=== PATIENT | female | born 1980 | race American Indian/Alaskan Native ===

== ENCOUNTER 2016-06-02 03:16 | Emergency (ER) | payer MEDICAID, OTHER ==
[2016-06-02 03:17] VITALS: BMI 47.0
[2016-06-02 03:26] VITALS: BP 157/65; PULSE 74; RESP 18; TEMP 98.6; O2SAT 99
--- NOTE | 2016-06-02 03:49 | ED PDOC ---
Upper Extremity Pain/Injury Time Seen by Provider: 06/02/16 03:26 Chief Complaint (Nursing): Upper Extremity Problem/Injury Chief Complaint (Provider): left shoulder pain History Per: Patient History/Exam Limitations: no limitations Onset/Duration Of Symptoms: Unknown Current Symptoms Are (Timing): Still Present Severity: Mild Exacerbating Factor(s): Movement Additional Complaint(s): Patient is a 35 year old female, well known to the ED, presents to the ED complaining of atraumatic left shoulder pain. According to chart review, patient was seen yesterday at the [facility] for the same complaint. Pain is worse with movement. Patient states she is tired and wants to sleep. Denies numbness or tingling. PMD: none Past Medical History Reviewed: Historical Data, Nursing Documentation, Vital Signs Vital Signs: Last Vital Signs Temp 98.6 F 06/02/16 03:22 Pulse 74 06/02/16 03:22 Resp 18 06/02/16 03:22 BP 157/65 H 06/02/16 03:22 Pulse Ox 99 06/02/16 03:22 - Medical History PMH: Anxiety, Asthma, Back Problems, Bipolar Disorder, Depression, HTN, Schizophrenia, Sleep Apnea Denies: Diabetes, Hepatitis, HIV, Chronic Kidney Disease, Seizures, Sexually Transmitted Disease - Surgical History Surgical History: Cholecystectomy, Hernia Repair (Umbilical), (x4) - Family History Family History: States: Unknown Family Hx - Immunization History Hx Tetanus Toxoid Vaccination: No Hx Influenza Vaccination: No Hx Pneumococcal Vaccination: No - Home Medications Home Medications: Ambulatory Orders Medication Instructions Recorded Albuterol HFA [Ventolin HFA 90 2 inh INH PRN PRN 01/28/16 mcg/actuation (8 g)] Amoxicillin [Amoxil 500 mg Cap] 500 mg PO TID #21 cap 04/23/16 Naproxen [Naprosyn] 500 mg PO BID #12 tablet 06/02/16 - Allergies Allergies/Adverse Reactions: Allergies Allergy/AdvReac Type Severity Reaction Status Date / Time nut - unspecified [nut] Allergy ANAPHYLAXIS Verified 05/21/16 01:09 shellfish derived Allergy ANAPHYLAXIS Verified 05/21/16 01:09 tomato Allergy ANAPHYLAXIS Verified 05/21/16 01:09 lactose intolerent Allergy Severe RASH Uncoded 05/21/16 01:09 mushroom Allergy Mild RASH Uncoded 05/21/16 01:09 Review of Systems ROS Statement: Except As Marked, All Systems Reviewed And Found Negative Constitutional: Negative for: Fever Musculoskeletal: Positive for: Shoulder Pain (left) Neurological: Negative for: Numbness Physical Exam - Reviewed Nursing Documentation Reviewed: Yes Vital Signs Reviewed: Yes - Physical Exam Appears: Positive for: Well, Non-toxic, No Acute Distress Head Exam: Positive for: ATRAUMATIC, NORMAL INSPECTION, NORMOCEPHALIC Skin: Positive for: Normal Color, Warm, DRY Eye Exam: Positive for: Normal appearance, EOMI Neck: Positive for: Normal, Painless ROM Extremity: Positive for: Normal ROM (Able to raise arm to the level of her head with increased pain), Tenderness (tend of posterior deltoid). Negative for: Deformity, Swelling Neurologic/Psych: Positive for: Alert, Oriented - ECG O2 Sat by Pulse Oximetry: 99 Medical Decision Making Medical Decision Making: Time: 3:30 Impression: Left shoulder pain Plan: Motrin 600 mg PO XR Left Shoulder Negative XR Left Shoulder Patient advised to follow up with orthopedist. Patient feels better. Discussed results and plan with patient who expresses understanding. Counseling was provided regarding the diagnosis and prognosis. All questions answered and there is agreement with the plan to discharge home with instructions. Patient stable for discharge. Return if symptoms persist or worsen. Scribe Attestation: Documented by Hamzah Arevalo acting as a scribe for Vic Lambert MD. Scribe Attestation: All medical record entries made by the Scribe were at my direction and personally dictated by me. I have reviewed the chart and agree that the record accurately reflects my personal performance of the history, physical exam, medical decision making, and the department course for this patient. I have also personally directed, reviewed, and agree with the discharge instructions and disposition. Disposition - Clinical Impression Clinical Impression: Shoulder pain - Patient ED Disposition Is Patient to be Admitted: No Counseled Patient/Family Regarding: Studies Performed, Diagnosis, Need For Followup - Disposition Referrals: [facility] [place] [Outside] Disposition: Routine/Home Disposition Time: 04:50 Condition: STABLE Prescriptions: Naproxen [Naprosyn] 500 mg PO BID #12 tablet Instructions: Shoulder Pain (ED)
--- NOTE | 2016-06-02 10:35 | RAD ---
PROCEDURE: Radiographs of the Left Shoulder HISTORY: shoulder pain COMPARISON: No prior. FINDINGS: BONES: Normal. No fracture. JOINTS: Normal. Glenohumeral and acromioclavicular joints preserved. No osteoarthritis. SOFT TISSUES: Normal. OTHER FINDINGS: None. IMPRESSION: Normal radiographs of the left shoulder.
== END 2016-06-02 05:10 | disposition home or self-care (01) ==
LOC: H.ER 03:16
DX: M25.512 Pain in left shoulder (principal); F20.9 Schizophrenia, unspecified; F31.9 Bipolar disorder, unspecified; F41.9 Anxiety disorder, unspecified; I10 Essential (primary) hypertension; Z87.09 Personal history of other diseases of the respiratory system

== ENCOUNTER 2016-07-02 03:43 | Emergency (ER) | payer MEDICAID, OTHER ==
[2016-07-02 03:55] VITALS: BMI 49.1
[2016-07-02 03:56] VITALS: BP 135/78; PULSE 70; RESP 16; TEMP 97.8
--- NOTE | 2016-07-02 04:00 | ED PDOC ---
HPI: General Adult Time Seen by Provider: 07/02/16 03:47 Chief Complaint (Nursing): Medical Clearance Chief Complaint (Provider): "I feel fine" History Per: Patient History/Exam Limitations: no limitations Onset/Duration Of Symptoms: Days Have you had recent travel within the past 21 days to any of the following countries: [place], [place], [place] or [place]?: No Additional Complaint(s): Pt sleeping in triage area on my arrival. Past Medical History Reviewed: Historical Data, Nursing Documentation, Vital Signs - Medical History PMH: Anxiety, Asthma, Back Problems, Bipolar Disorder, Depression, HTN, Schizophrenia, Sleep Apnea Denies: Diabetes, Hepatitis, HIV, Chronic Kidney Disease, Seizures, Sexually Transmitted Disease - Surgical History Surgical History: Cholecystectomy, Hernia Repair (Umbilical), (x4) - Family History Family History: States: Unknown Family Hx - Living Arrangements Living Arrangements: Other - Immunization History Hx Tetanus Toxoid Vaccination: No Hx Influenza Vaccination: Yes Hx Pneumococcal Vaccination: Yes - Home Medications Home Medications: Ambulatory Orders Medication Instructions Recorded No Known Home Med 06/25/16 - Allergies Allergies/Adverse Reactions: Allergies Allergy/AdvReac Type Severity Reaction Status Date / Time nut - unspecified [nut] Allergy ANAPHYLAXIS Verified 06/16/16 05:12 shellfish derived Allergy ANAPHYLAXIS Verified 06/16/16 05:12 tomato Allergy ANAPHYLAXIS Verified 06/16/16 05:12 lactose intolerent Allergy Severe RASH Uncoded 06/16/16 05:12 mushroom Allergy Mild RASH Uncoded 06/16/16 05:12 Review of Systems ROS Statement: Except As Marked, All Systems Reviewed And Found Negative Physical Exam - Reviewed Nursing Documentation Reviewed: Yes Vital Signs Reviewed: Yes - Physical Exam Appears: Positive for: Well, Non-toxic, No Acute Distress Head Exam: Positive for: ATRAUMATIC, NORMAL INSPECTION, NORMOCEPHALIC Skin: Positive for: Normal Color, Warm, DRY Eye Exam: Positive for: Normal appearance ENT: Positive for: Normal ENT Inspection Neck: Positive for: Normal, Painless ROM Cardiovascular/Chest: Positive for: Regular Rate, Rhythm Respiratory: Positive for: CNT, Normal Breath Sounds Gastrointestinal/Abdominal: Positive for: Normal Exam, Bowel Sounds, Soft Back: Positive for: Normal Inspection Extremity: Positive for: Normal ROM Neurologic/Psych: Positive for: Alert, Oriented - ECG O2 Sat by Pulse Oximetry: 99 Pulse Ox Interpretation: Normal Medical Decision Making Medical Decision Making: EKG - NSR Disposition - Clinical Impression Clinical Impression: Chest pain - Disposition Referrals: [facility] [Outside] Disposition: Routine/Home Disposition Time: 03:55 Condition: STABLE Instructions: Chest Pain (ED)
[2016-07-02 04:08] VITALS: O2SAT 99
== END 2016-07-02 04:35 | disposition home or self-care (01) ==
LOC: H.ER 03:43
DX: R07.89 Other chest pain (principal)

== ENCOUNTER 2016-08-23 02:14 | Emergency (ER) | payer MEDICAID, OTHER ==
[2016-08-23 02:16] VITALS: BMI 42.0
[2016-08-23 02:31] VITALS: BP 139/89; PULSE 76; RESP 16; TEMP 98; O2SAT 98
--- NOTE | 2016-08-23 02:39 | ED PDOC ---
HPI: Back Time Seen by Provider: 08/23/16 02:20 Chief Complaint (Nursing): Back Pain Chief Complaint (Provider): back pain History Per: Patient History/Exam Limitations: no limitations Onset/Duration Of Symptoms: Hrs Current Symptoms Are (Timing): Still Present Additional History Per: Patient Additional Complaint(s): 36 y/o nondomiciled female presents for eval of right lower back pain. Patient states pain starts in right buttock and radiates down right leg, states she needs a place to rest for a little. 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 Denies fall, numbness/ weakness lower extremities, bowel/bladder incontinence, urinary symptoms. Past Medical History Reviewed: Historical Data, Nursing Documentation, Vital Signs Vital Signs: Last Vital Signs Temp 98.0 F 08/23/16 02:19 Pulse 76 08/23/16 02:19 Resp 16 08/23/16 02:19 BP 139/89 08/23/16 02:19 Pulse Ox 98 08/23/16 02:19 - Medical History PMH: Anxiety, Asthma, Back Problems, Bipolar Disorder, Depression, HTN, Schizophrenia, Sleep Apnea Denies: Diabetes, Hepatitis, HIV, Chronic Kidney Disease, Seizures, Sexually Transmitted Disease - Surgical History Surgical History: Cholecystectomy, Hernia Repair (Umbilical), (x4) - Family History Family History: States: Unknown Family Hx - Immunization History Hx Tetanus Toxoid Vaccination: No Hx Influenza Vaccination: Yes Hx Pneumococcal Vaccination: Yes - Home Medications Home Medications: Ambulatory Orders Medication Instructions Recorded Albuterol HFA [Ventolin HFA 90 0.09 mg IH Q6 PRN 07/26/16 mcg/actuation (8 g)] Naproxen [Naprosyn] 500 mg PO Q12 PRN #20 tablet 08/23/16 - Allergies Allergies/Adverse Reactions: Allergies Allergy/AdvReac Type Severity Reaction Status Date / Time nut - unspecified [nut] Allergy ANAPHYLAXIS Verified 08/19/16 04:57 shellfish derived Allergy ANAPHYLAXIS Verified 08/19/16 04:57 tomato Allergy ANAPHYLAXIS Verified 08/19/16 04:57 lactose intolerent Allergy Severe RASH Uncoded 08/19/16 04:57 mushroom Allergy Mild RASH Uncoded 08/19/16 04:57 Review of Systems ROS Statement: Except As Marked, All Systems Reviewed And Found Negative Musculoskeletal: Positive for: Back Pain, Leg Pain Physical Exam - Reviewed Nursing Documentation Reviewed: Yes Vital Signs Reviewed: Yes - Physical Exam Appears: Positive for: Well, Non-toxic, No Acute Distress (sleeping) Head Exam: Positive for: ATRAUMATIC, NORMAL INSPECTION, NORMOCEPHALIC Skin: Positive for: Normal Color Cardiovascular/Chest: Positive for: Regular Rate, Rhythm Respiratory: Positive for: Normal Breath Sounds Back: Positive for: Normal Inspection Extremity: Positive for: Normal ROM Neurologic/Psych: Positive for: Alert, Oriented - ECG O2 Sat by Pulse Oximetry: 98 Disposition - Clinical Impression Clinical Impression: Substance abuse, Sciatica - Patient ED Disposition Is Patient to be Admitted: No Counseled Patient/Family Regarding: Diagnosis, Need For Followup, Rx Given - Disposition Disposition: Routine/Home Disposition Time: 02:42 Condition: STABLE Prescriptions: Naproxen [Naprosyn] 500 mg PO Q12 PRN #20 tablet PRN Reason: Pain, Moderate (4-7) Instructions: Cannabis Abuse (ED), Sciatica (ED)
== END 2016-08-23 02:45 | disposition home or self-care (01) ==
LOC: H.ER 02:14
DX: F19.10 Other psychoactive substance abuse, uncomplicated (principal); M54.30 Sciatica, unspecified side

== ENCOUNTER 2016-08-26 05:05 | Emergency (ER) | payer MEDICAID, OTHER ==
[2016-08-26 05:05] VITALS: BMI 42.0
[2016-08-26 05:22] VITALS: BP 178/75; PULSE 66; RESP 17; TEMP 98.6; O2SAT 98
--- NOTE | 2016-08-26 05:31 | ED PDOC ---
HPI: Psych/Substance Abuse Time Seen by Provider: 08/26/16 05:23 Chief Complaint (Nursing): Psychiatric Evaluation Chief Complaint (Provider): crisis eval History Per: Patient Additional Complaint(s): Patient is a non-domiciled female who presents to ED requesting crisis evaluation. She states she has been feeling depressed and suicidal since 2 am today. Patient denies any plan. She is well known to ED for frequent visits. Patient was just seen at [facility] ED and called ambulance to come here. Past Medical History Reviewed: Historical Data, Nursing Documentation, Vital Signs Vital Signs: Last Vital Signs Temp 98.6 F 08/26/16 05:14 Pulse 66 08/26/16 05:14 Resp 17 08/26/16 05:14 BP 178/75 H 08/26/16 05:14 Pulse Ox 98 08/26/16 05:14 - Medical History PMH: Anxiety, Asthma, Back Problems, Bipolar Disorder, Depression, HTN, Schizophrenia, Sleep Apnea - Surgical History Surgical History: Cholecystectomy, Hernia Repair (Umbilical), (x4) - Family History Family History: States: No Known Family Hx - Living Arrangements Living Arrangements: Other (non domiciled) - Social History Drugs: Cannabis - Home Medications Home Medications: Ambulatory Orders Medication Instructions Recorded Albuterol HFA [Ventolin HFA 90 0.09 mg IH Q6 PRN 07/26/16 mcg/actuation (8 g)] Naproxen [Naprosyn] 500 mg PO Q12 PRN #20 tablet 08/23/16 - Allergies Allergies/Adverse Reactions: Allergies Allergy/AdvReac Type Severity Reaction Status Date / Time nut - unspecified [nut] Allergy ANAPHYLAXIS Verified 08/26/16 03:24 shellfish derived Allergy ANAPHYLAXIS Verified 08/26/16 03:24 tomato Allergy ANAPHYLAXIS Verified 08/26/16 03:24 lactose intolerent Allergy Severe RASH Uncoded 08/26/16 03:24 mushroom Allergy Mild RASH Uncoded 08/26/16 03:24 Review of Systems ROS Statement: Except As Marked, All Systems Reviewed And Found Negative Psych: Positive for: Depression, Suicidal ideation Physical Exam - Reviewed Nursing Documentation Reviewed: Yes Vital Signs Reviewed: Yes - Physical Exam Appears: Positive for: Well, Non-toxic, No Acute Distress Skin: Negative for: Rash Eye Exam: Positive for: Normal appearance, EOMI, PERRL Cardiovascular/Chest: Positive for: Regular Rate, Rhythm Respiratory: Positive for: Normal Breath Sounds Neurologic/Psych: Positive for: Alert, Oriented - ECG O2 Sat by Pulse Oximetry: 98 Pulse Ox Interpretation: Normal Medical Decision Making Medical Decision Makin36 year old female requesting crisis eval Plan: Crisis consult As per crisis counselor and Dr. Peterson, psychiatrist production expert, patient does not meet criteria for admission and is stable for discharge. Disposition - Clinical Impression Clinical Impression: Depression - Patient ED Disposition Is Patient to be Admitted: No Counseled Patient/Family Regarding: Diagnosis, Need For Followup - Disposition Referrals: [facility] [Outside] Disposition: Routine/Home Disposition Time: 05:42 Condition: STABLE Additional Instructions: Follow up as directed by crisis counselor. Instructions: Depression (ED)
== END 2016-08-26 05:57 | disposition home or self-care (01) ==
LOC: H.ER 05:05
DX: F33.9 Major depressive disorder, recurrent, unspecified (principal); F20.9 Schizophrenia, unspecified; F31.9 Bipolar disorder, unspecified; F41.9 Anxiety disorder, unspecified; G47.30 Sleep apnea, unspecified; I10 Essential (primary) hypertension; J45.909 Unspecified asthma, uncomplicated

== ENCOUNTER 2016-09-19 03:51 | Emergency (ER) | payer OTHER ==
[2016-09-19 03:51] VITALS: BMI 42.0
[2016-09-19 04:00] VITALS: BP 103/38; PULSE 73; RESP 16; TEMP 98.9; O2SAT 100
--- NOTE | 2016-09-19 04:03 | ED PDOC ---
HPI:Nausea, Vomiting, Diarrhea Time Seen by Provider: 09/19/16 03:52 Chief Complaint (Nursing): GI Problem Chief Complaint (Provider): Vomiting History Per: Patient History/Exam Limitations: no limitations Additional Complaint(s): Susannah Weiner, a 36 year old female, presents to the ED complaining of vomiting. The patient reports that she ate at hot house and right after felt nauseated. Denies drug or alcohol use. Denies fevers and chills. Of note:Patient is well known to the ED for bed seeking behaviour Past Medical History Reviewed: Historical Data, Nursing Documentation, Vital Signs Vital Signs: Last Vital Signs Temp 98.9 F 09/19/16 03:58 Pulse 73 09/19/16 03:58 Resp 16 09/19/16 03:58 BP 103/38 L 09/19/16 03:58 Pulse Ox 100 09/19/16 03:58 - Medical History PMH: Anxiety, Asthma, Back Problems, Bipolar Disorder, Depression, HTN, Schizophrenia, Sleep Apnea Denies: Diabetes, Hepatitis, HIV, Chronic Kidney Disease, Seizures, Sexually Transmitted Disease - Surgical History Surgical History: Cholecystectomy, Hernia Repair (Umbilical), (x4) - Family History Family History: States: Unknown Family Hx - Immunization History Hx Tetanus Toxoid Vaccination: No Hx Influenza Vaccination: Yes Hx Pneumococcal Vaccination: Yes - Home Medications Home Medications: Ambulatory Orders Medication Instructions Recorded Albuterol HFA [Ventolin HFA 90 0.09 mg IH Q6 PRN 07/26/16 mcg/actuation (8 g)] Naproxen [Naprosyn] 500 mg PO Q12 PRN #20 tablet 08/23/16 - Allergies Allergies/Adverse Reactions: Allergies Allergy/AdvReac Type Severity Reaction Status Date / Time nut - unspecified [nut] Allergy ANAPHYLAXIS Verified 08/26/16 03:24 shellfish derived Allergy ANAPHYLAXIS Verified 08/26/16 03:24 tomato Allergy ANAPHYLAXIS Verified 08/26/16 03:24 lactose intolerent Allergy Severe RASH Uncoded 08/26/16 03:24 mushroom Allergy Mild RASH Uncoded 08/26/16 03:24 Review of Systems ROS Statement: Except As Marked, All Systems Reviewed And Found Negative Constitutional: Negative for: Fever, Chills Gastrointestinal: Positive for: Vomiting Physical Exam - Reviewed Nursing Documentation Reviewed: Yes Vital Signs Reviewed: Yes - Physical Exam Appears: Positive for: Non-toxic, No Acute Distress Head Exam: Positive for: ATRAUMATIC, NORMAL INSPECTION, NORMOCEPHALIC Skin: Positive for: Normal Color, Warm, Dry Eye Exam: Positive for: Normal appearance, EOMI, PERRL ENT: Positive for: Normal ENT Inspection Neck: Positive for: Normal, Painless ROM, Supple Cardiovascular/Chest: Positive for: Regular Rate, Rhythm, Chest Non Tender. Negative for: Tachycardia Respiratory: Positive for: Normal Breath Sounds. Negative for: Wheezing, Respiratory Distress Gastrointestinal/Abdominal: Positive for: Normal Exam, Bowel Sounds, Soft. Negative for: Tenderness, Guarding, Rebound Back: Positive for: Normal Inspection Extremity: Positive for: Normal ROM. Negative for: Tenderness, Deformity, Swelling Neurologic/Psych: Positive for: Alert, Oriented, Gait - ECG O2 Sat by Pulse Oximetry: 100 (RA) Pulse Ox Interpretation: Normal Medical Decision Making Medical Decision Makin Initial Impression: 36 year old female presenting with bed seeking behaviour and vomiting Initial Plan: * Reevaluation 0417 Patient tolerated PO. Patient is medically stable and will be discharged home. _ Scribe Attestation Documented by Aviva Moscoso acting as a scribe for Vic Lambert MD. Provider Attestation All medical record entries made by the Scribe were at my direction and personally dictated by me. I have reviewed the chart and agree that the record accurately reflects my personal performance of the history, physical exam, medical decision making, and the department course for this patient. I have also personally directed, reviewed, and agree with the discharge instructions and disposition. Disposition - Clinical Impression Clinical Impression: Homelessness, Vomiting - Patient ED Disposition Is Patient to be Admitted: No - Disposition Referrals: [facility] [Outside] Disposition: Routine/Home Disposition Time: 04:18 Condition: STABLE Instructions: Acute Nausea and Vomiting (ED) Forms: [employer] (Chinese)
== END 2016-09-19 05:32 | disposition home or self-care (01) ==
LOC: H.ER 03:51
DX: R11.10 Vomiting, unspecified (principal); Z59.0 Homelessness; F20.9 Schizophrenia, unspecified; I10 Essential (primary) hypertension

== ENCOUNTER 2016-10-14 03:56 | Emergency (ER) | payer OTHER ==
[2016-10-14 03:57] VITALS: BMI 42.0
[2016-10-14 04:08] VITALS: BP 135/95; PULSE 70; RESP 16; TEMP 98.5; O2SAT 100
--- NOTE | 2016-10-14 04:10 | ED PDOC ---
HPI: Psych/Substance Abuse Time Seen by Provider: 10/14/16 04:09 Chief Complaint (Nursing): Psychiatric Evaluation Chief Complaint (Provider): crisis eval History Per: Patient, EMS Additional Complaint(s): 36 year old presents to ED for crisis eval. Patient state she was in a bathroom when someone startled her. She called ambulance and was brought here. Patient denies any suicidal or homicidal ideation. She offers no other complaints. Patient is well known to ED for frequent visits. Past Medical History Reviewed: Historical Data, Nursing Documentation, Vital Signs Vital Signs: Last Vital Signs Temp 98.5 F 10/14/16 04:05 Pulse 70 10/14/16 04:05 Resp 16 10/14/16 04:05 BP 135/95 H 10/14/16 04:05 Pulse Ox 100 10/14/16 04:05 - Medical History PMH: Anxiety, Asthma, Back Problems, Bipolar Disorder, Depression, HTN, Schizophrenia, Sleep Apnea - Surgical History Surgical History: Cholecystectomy, Hernia Repair (Umbilical), (x4) - Family History Family History: States: No Known Family Hx - Living Arrangements Living Arrangements: Other (non-domiciled) - Social History Current smoker - smoking cessation education provided: Yes Drugs: Cannabis - Home Medications Home Medications: Ambulatory Orders Medication Instructions Recorded Albuterol HFA [Ventolin HFA 90 0.09 mg IH Q6 PRN 07/26/16 mcg/actuation (8 g)] Naproxen [Naprosyn] 500 mg PO Q12 PRN #20 tablet 08/23/16 - Allergies Allergies/Adverse Reactions: Allergies Allergy/AdvReac Type Severity Reaction Status Date / Time nut - unspecified [nut] Allergy ANAPHYLAXIS Verified 08/26/16 03:24 shellfish derived Allergy ANAPHYLAXIS Verified 08/26/16 03:24 tomato Allergy ANAPHYLAXIS Verified 08/26/16 03:24 lactose intolerent Allergy Severe RASH Uncoded 08/26/16 03:24 mushroom Allergy Mild RASH Uncoded 08/26/16 03:24 Review of Systems ROS Statement: Except As Marked, All Systems Reviewed And Found Negative Psych: Positive for: Anxiety. Negative for: Suicidal ideation Physical Exam - Reviewed Nursing Documentation Reviewed: Yes Vital Signs Reviewed: Yes - Physical Exam Appears: Positive for: Well, Non-toxic, No Acute Distress Skin: Negative for: Rash Eye Exam: Positive for: Normal appearance Cardiovascular/Chest: Positive for: Regular Rate, Rhythm Respiratory: Positive for: Normal Breath Sounds. Negative for: Wheezing, Respiratory Distress Neurologic/Psych: Positive for: Alert, Oriented, Mood/Affect (appropriate), Gait (steady) - ECG O2 Sat by Pulse Oximetry: 100 Pulse Ox Interpretation: Normal Medical Decision Making Medical Decision Makin36 year old female here for crisis eval Plan: Crisis consult As per crisis counselor and psychiatrist management information systems director, Dr. Peterson, patient does not meet criteria for admission and is stable for discharge. Disposition - Clinical Impression Clinical Impression: Anxiety - Patient ED Disposition Is Patient to be Admitted: No Counseled Patient/Family Regarding: Diagnosis, Need For Followup - Disposition Referrals: [facility] [Outside] Disposition: Routine/Home Disposition Time: 04:27 Condition: STABLE Additional Instructions: Follow up as directed. Instructions: Anxiety (ED) Forms: [employer] ([place])
== END 2016-10-14 04:59 | disposition home or self-care (01) ==
LOC: H.ER 03:56
DX: F41.9 Anxiety disorder, unspecified (principal); F20.9 Schizophrenia, unspecified; F31.9 Bipolar disorder, unspecified; I10 Essential (primary) hypertension; J45.909 Unspecified asthma, uncomplicated

== ENCOUNTER 2017-07-10 01:04 | Emergency (ER) | payer MEDICAID, OTHER ==
[2017-07-10 01:04] VITALS: BMI 40.6
[2017-07-10 01:17] VITALS: O2SAT 98
--- NOTE | 2017-07-10 01:56 | ED PDOC ---
HPI: Abdomen Time Seen by Provider: 07/10/17 01:08 Chief Complaint (Nursing): Abdominal Pain Chief Complaint (Provider): Abdominal Pain History Per: Patient History/Exam Limitations: no limitations Onset/Duration Of Symptoms: Hrs (x2) Current Symptoms Are (Timing): Still Present Additional Complaint(s): 36 y/o woman with a history of bed seeking behavior, who presents to the ED for evaluation of abdominal pain x2 hours. Patient is well known to this provider. Patient was recently seen at [facility] for similar complaints and had negative labs and CT and was discharged. PMD: None provided Past Medical History Reviewed: Historical Data, Nursing Documentation, Vital Signs Vital Signs: Last Vital Signs Temp 99 F 07/10/17 01:13 Pulse 89 07/10/17 01:13 Resp 14 07/10/17 01:13 BP 146/96 H 07/10/17 01:13 Pulse Ox 98 07/10/17 01:13 - Medical History PMH: Anxiety, Asthma, Back Problems, Bipolar Disorder, Depression, HTN, Schizophrenia, Sleep Apnea Denies: Diabetes, Hepatitis, HIV, Chronic Kidney Disease, Seizures, Sexually Transmitted Disease - Surgical History Surgical History: Cholecystectomy, Hernia Repair (Umbilical), (x4) - Family History Family History: States: Unknown Family Hx - Social History Current smoker - smoking cessation education provided: No Alcohol: None Drugs: Denies - Immunization History Hx Tetanus Toxoid Vaccination: No Hx Influenza Vaccination: No Hx Pneumococcal Vaccination: No - Home Medications Home Medications: Ambulatory Orders Medication Instructions Recorded Albuterol HFA [Ventolin HFA 90 0.09 mg IH PRN PRN 07/08/17 mcg/actuation (8 g)] Dicyclomine [Bentyl] 20 mg PO TID #30 tab 07/08/17 - Allergies Allergies/Adverse Reactions: Allergies Allergy/AdvReac Type Severity Reaction Status Date / Time nut - unspecified [nut] Allergy ANAPHYLAXIS Verified 07/06/17 02:14 shellfish derived Allergy ANAPHYLAXIS Verified 07/06/17 02:14 tomato Allergy ANAPHYLAXIS Verified 07/06/17 02:14 lactose intolerent Allergy Severe RASH Uncoded 07/06/17 02:14 mushroom Allergy Mild RASH Uncoded 07/06/17 02:14 Review of Systems ROS Statement: Except As Marked, All Systems Reviewed And Found Negative Gastrointestinal: Positive for: Abdominal Pain Physical Exam - Reviewed Nursing Documentation Reviewed: Yes Vital Signs Reviewed: Yes - Physical Exam Appears: Positive for: Non-toxic, No Acute Distress Head Exam: Positive for: ATRAUMATIC, NORMAL INSPECTION, NORMOCEPHALIC Skin: Positive for: Normal Color, Warm, Dry. Negative for: Rash Eye Exam: Positive for: EOMI, Normal appearance, PERRL Neck: Positive for: Normal, Painless ROM, Supple Cardiovascular/Chest: Positive for: Regular Rate, Rhythm. Negative for: Murmur Respiratory: Positive for: Normal Breath Sounds. Negative for: Respiratory Distress Gastrointestinal/Abdominal: Positive for: Normal Exam, Soft. Negative for: Tenderness Back: Positive for: Normal Inspection. Negative for: L CVA Tenderness, R CVA Tenderness, Vertebral Tenderness Extremity: Positive for: Normal ROM. 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 Scribe Attestation: Documented by Shan Syed, acting as a scribe for Eliu Cox MD. Provider Scribe Attestation: All medical record entries made by the Scribe were at my direction and personally dictated by me. I have reviewed the chart and agree that the record accurately reflects my personal performance of the history, physical exam, medical decision making, and the department course for this patient. I have also personally directed, reviewed, and agree with the discharge instructions and disposition. Disposition - Clinical Impression Clinical Impression: Malingerer - Patient ED Disposition Is Patient to be Admitted: No Counseled Patient/Family Regarding: Diagnosis - Disposition Disposition: Routine/Home Disposition Time: 01:30 Condition: STABLE Forms: [employer] (Uzbek)
[2017-07-10 06:59] VITALS: BP 136/79; PULSE 78; RESP 16; TEMP 98.3
== END 2017-07-10 06:54 | disposition home or self-care (01) ==
LOC: H.ER 01:04
DX: Z76.5 Malingerer [conscious simulation] (principal)

== ENCOUNTER 2017-07-14 00:24 | Emergency (ER) | payer MEDICAID, OTHER ==
[2017-07-14 00:25] VITALS: BMI 40.6
[2017-07-14] MEDS ORDERED: Sodium Chloride 0.9% 1,000 ML IV STA (00:53)
[2017-07-14 01:24] LABS: BASO # 0.1 K/uL (0.0-0.2); BASO % 0.9 % (0.0-2.0); EOS # 0.4 K/uL (0.0-0.7); EOS % 4.1 % (0.0-4.0); HEMOGLOBIN 8.7 g/dL (12.0-16.0); LYMPH # 2.8 K/uL (1.0-4.3); LYMPH % 32.9 % (20.0-40.0); MEAN CELL VOLUME 71.7 fl (81.0-99.0); MEAN CORPUSCULAR HEMOGLOBIN 21.9 pg (27.0-31.0); MEAN CORPUSCULAR HGB CONC 30.5 g/dL (33.0-37.0); MEAN PLATELET VOLUME 8.7 fl (7.2-11.7); MONO # 0.5 K/uL (0.0-0.8); MONO % 6.1 % (0.0-10.0); NEUT # 4.8 K/uL (1.8-7.0); NRBC % 0.1 % (0.0-0.0); RBC 3.98 Mil/uL (3.80-5.20); RED CELL DISTRIBUTION WIDTH 19.3 % (11.5-14.5); WHITE BLOOD COUNT 8.6 K/uL (4.8-10.8)
[2017-07-14 01:33] LABS: ALB/GLOB RATIO 1.1 (1.0-2.1); ALBUMIN 3.5 g/dL (3.5-5.0); ALT/SGPT 29 U/L (9-52); AST/SGOT 18 U/L (14-36); BLOOD UREA NITROGEN 14 mg/dl (7-17); CALCIUM 8.7 mg/dL (8.4-10.2); GFR AFRICAN-AMERICAN > 60; GFR NON-AFRICAN AMERICAN > 60
--- NOTE | 2017-07-14 05:05 | ED PDOC ---
HPI: General Adult Time Seen by Provider: 07/14/17 00:39 Chief Complaint (Nursing): Substance Abuse Chief Complaint (Provider): Dizziness History Per: Patient History/Exam Limitations: no limitations Onset/Duration Of Symptoms: Mins Current Symptoms Are (Timing): Still Present Additional Complaint(s): 36 year old female, with a past medical history of obesity, malingering disorder , and substance abuse, presented to ED via ems complaining of dizziness. 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 PCP: none provided Past Medical History Reviewed: Historical Data, Nursing Documentation, Vital Signs Vital Signs: Last Vital Signs Temp 97.8 F 07/14/17 05:45 Pulse 76 07/14/17 05:45 Resp 16 07/14/17 05:45 BP 134/71 07/14/17 05:45 Pulse Ox 98 07/14/17 05:45 - Medical History PMH: Anxiety, Asthma, Back Problems, Bipolar Disorder, Depression, HTN, Schizophrenia, Sleep Apnea Denies: Diabetes, Hepatitis, HIV, Chronic Kidney Disease, Seizures, Sexually Transmitted Disease - Surgical History Surgical History: Cholecystectomy, Hernia Repair (Umbilical), (x4) - Family History Family History: States: Unknown Family Hx - Immunization History Hx Tetanus Toxoid Vaccination: No Hx Influenza Vaccination: No Hx Pneumococcal Vaccination: No - Home Medications Home Medications: Ambulatory Orders Medication Instructions Recorded Albuterol HFA [Ventolin HFA 90 0.09 mg IH PRN PRN 07/08/17 mcg/actuation (8 g)] Dicyclomine [Bentyl] 20 mg PO TID #30 tab 07/08/17 - Allergies Allergies/Adverse Reactions: Allergies Allergy/AdvReac Type Severity Reaction Status Date / Time nut - unspecified [nut] Allergy ANAPHYLAXIS Verified 07/14/17 00:40 shellfish derived Allergy ANAPHYLAXIS Verified 07/14/17 00:40 tomato Allergy ANAPHYLAXIS Verified 07/14/17 00:40 lactose intolerent Allergy Severe RASH Uncoded 07/14/17 00:40 mushroom Allergy Mild RASH Uncoded 07/14/17 00:40 Review of Systems ROS Statement: Except As Marked, All Systems Reviewed And Found Negative Neurological: Positive for: Dizziness Physical Exam - Reviewed Nursing Documentation Reviewed: Yes Vital Signs Reviewed: Yes - Physical Exam Appears: Positive for: Non-toxic, No Acute Distress Head Exam: Positive for: ATRAUMATIC, NORMAL INSPECTION, NORMOCEPHALIC Skin: Positive for: Normal Color, Warm, Dry Eye Exam: Positive for: Normal appearance Neck: Positive for: Normal, Painless ROM Cardiovascular/Chest: Positive for: Regular Rate, Rhythm. Negative for: Murmur Respiratory: Positive for: Normal Breath Sounds. Negative for: Wheezing, Respiratory Distress Gastrointestinal/Abdominal: Positive for: Normal Exam, Soft. Negative for: Tenderness Extremity: Positive for: Normal ROM Neurologic/Psych: Positive for: Alert, Oriented. Negative for: Motor/Sensory Deficits - Laboratory Results Result Diagrams: 07/14/17 01:19 07/14/17 01:19 - ECG O2 Sat by Pulse Oximetry: 97 (RA) Pulse Ox Interpretation: Normal Medical Decision Making Medical Decision Making: Initial Impression: Intoxication Initial Plan: CMP Urine ED urine dipstick CBC Glucose Sodium chloride 1000mL IV Accucheck Labs reviewed show no clinically significant abnormalities Elevated AC likely erroneous givcen no hx DM and nl serum glucose on CMP Patient is stable upon discharge DX Alcohol abuse/substance Abuse Scribe Attestation: Documented by Joe Mackenzie acting as a scribe for Eliu Cox MD. Provider Scribe Attestation: All medical record entries made by the Scribe were at my direction and personally dictated by me. I have reviewed the chart and agree that the record accurately reflects my personal performance of the history, physical exam, medical decision making, and the department course for this patient. I have also personally directed, reviewed, and agree with the discharge instructions and disposition. Disposition - Clinical Impression Clinical Impression: Alcohol abuse - Patient ED Disposition Is Patient to be Admitted: No - Disposition Disposition: Routine/Home Disposition Time: 04:00 Condition: STABLE Instructions: Effects of Alcohol on Your Health Forms: [employer] (Kyrgyz)
[2017-07-14 05:52] VITALS: BP 134/71; PULSE 76; RESP 16; TEMP 97.8
[2017-07-14 06:40] VITALS: O2SAT 97
== END 2017-07-14 06:57 | disposition home or self-care (01) ==
LOC: H.ER 00:24
DX: F10.10 Alcohol abuse, uncomplicated (principal); E66.9 Obesity, unspecified; F20.9 Schizophrenia, unspecified; F31.9 Bipolar disorder, unspecified; F41.9 Anxiety disorder, unspecified; I10 Essential (primary) hypertension; J45.909 Unspecified asthma, uncomplicated
CPT/HCPCS: 80053; 82948; 85025; 96360; 99285; J7040

== ENCOUNTER 2017-08-11 02:56 | Emergency (ER) | payer MEDICAID, OTHER ==
[2017-08-11 02:58] VITALS: BMI 27.2
[2017-08-11 03:20] VITALS: RESP 16; TEMP 98.6
--- NOTE | 2017-08-11 05:23 | ED PDOC ---
HPI: Female Pain Time Seen by Provider: 08/11/17 03:14 Chief Complaint (Nursing): Female Genitourinary History Per: Patient Additional Complaint(s): 37 yo F, c/o lower abdominal pain radiating to her rectal area after consensual sexual intercourse. She reports no fever, N/V/D, urinary symptoms, vaginal bleeding, vaginal discharge, dyspareunia, rectal pain or bleeding. Has no other complaints. Has had 4 c-sections. Past Medical History Vital Signs: Last Vital Signs Temp 98.6 F 08/11/17 03:17 Pulse 66 08/11/17 03:17 Resp 16 08/11/17 03:17 BP 107/53 L 08/11/17 03:17 Pulse Ox 99 08/11/17 03:17 - Medical History PMH: Anxiety, Asthma, Back Problems, Bipolar Disorder, Depression, HTN, Schizophrenia, Sleep Apnea Denies: Diabetes, Hepatitis, HIV, Chronic Kidney Disease, Seizures, Sexually Transmitted Disease - Surgical History Surgical History: Cholecystectomy, Hernia Repair (Umbilical), (x4) - Family History Family History: States: Unknown Family Hx - Immunization History Hx Tetanus Toxoid Vaccination: No Hx Influenza Vaccination: No Hx Pneumococcal Vaccination: No - Home Medications Home Medications: Ambulatory Orders Medication Instructions Recorded Benztropine [Cogentin] 1 mg PO BID #60 tab 07/27/17 Haloperidol [Haldol] 10 mg PO BID #60 tab 07/27/17 PARoxetine [Paxil] 20 mg PO QAM #30 tab 07/27/17 traZODone [Desyrel] 50 mg PO HS #30 tab 07/27/17 - Allergies Allergies/Adverse Reactions: Allergies Allergy/AdvReac Type Severity Reaction Status Date / Time nut - unspecified [nut] Allergy ANAPHYLAXIS Verified 08/09/17 05:45 shellfish derived Allergy ANAPHYLAXIS Verified 08/09/17 05:45 tomato Allergy ANAPHYLAXIS Verified 08/09/17 05:45 lactose intolerent Allergy Severe RASH Uncoded 08/09/17 05:45 mushroom Allergy Mild RASH Uncoded 08/09/17 05:45 Review of Systems Constitutional: Negative for: Fever, Malaise Cardiovascular: Negative for: Chest Pain, Palpitations Respiratory: Negative for: Cough, Shortness of Breath Gastrointestinal: Positive for: Abdominal Pain. Negative for: Nausea, Vomiting Genitourinary Female: Negative for: Dysuria, Frequency, Vaginal Discharge, Vaginal Bleeding Musculoskeletal: Negative for: Neck Pain, Back Pain Skin: Negative for: Rash, Lesions Physical Exam - Physical Exam Appears: Positive for: Well, Non-toxic, No Acute Distress (patient is laying comfortably in bed, sleeping, arouses easily) Head Exam: Positive for: ATRAUMATIC, NORMAL INSPECTION, NORMOCEPHALIC Skin: Positive for: Normal Color, Warm, DRY Eye Exam: Positive for: EOMI, Normal appearance, PERRL ENT: Positive for: Normal ENT Inspection Neck: Positive for: Normal, Painless ROM Cardiovascular/Chest: Positive for: Regular Rate, Rhythm Respiratory: Positive for: CNT, Normal Breath Sounds Gastrointestinal/Abdominal: Positive for: Normal Exam, Soft. Negative for: Tenderness, Guarding, Rebound Back: Positive for: Normal Inspection. Negative for: L CVA Tenderness, R CVA Tenderness Extremity: Positive for: Normal ROM. 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 Negative for : Motor/Sensory Deficits - ECG O2 Sat by Pulse Oximetry: 99 Medical Decision Making Medical Decision Making: Previous medical records reviewed, patient has had multiple ED visits. 0430 On re-evaluation, patient is sleeping. She has no complaints. 0530 hcg (-). Patient is still sleeping, but arouses easily and is tolerating food and fluids. She reports no abdominal pain at this time without any N/V/D, rectal pain/bleeding, vaginal bleeding/dc. On exam, abdomen remains soft, non- tender, no guarding. Otherwise is stable for d/c. Disposition - Clinical Impression Clinical Impression: Malingering, Homelessness - Patient ED Disposition Is Patient to be Admitted: No - Disposition Referrals: [facility] [Outside] Disposition: Routine/Home Disposition Time: 06:00 Condition: STABLE Additional Instructions: Thank you for letting us take care of you today. You were evaluated for abdominal pain. The emergency medical care you received today was directed at your acute symptoms. Return to the Emergency Department if your symptoms worsen , do not improve, or if you have any other problems. Please call one of the physicians/clinics you have been referred to that are listed on the Patient Visit Information form that is included in your discharge packet. Bring any paperwork you were given at discharge with you along with any medications you are taking to your follow up visit. Our treatment cannot replace ongoing medical care by a primary care provider (PCP) outside of the emergency department. 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
[2017-08-11 05:57] VITALS: BP 120/86; PULSE 86; O2SAT 98
== END 2017-08-11 06:01 | disposition home or self-care (01) ==
LOC: H.ER 02:56
DX: Z76.5 Malingerer [conscious simulation] (principal); Z59.0 Homelessness

== ENCOUNTER 2017-10-15 05:25 | Emergency (ER) | payer MEDICAID, OTHER ==
[2017-10-15 05:25] VITALS: BMI 40.6
--- NOTE | 2017-10-15 06:07 | ED PDOC ---
HPI: Abdomen <Nohemi Naik - Last Filed: 10/15/17 06:40> <Annmarie Smith - Last Filed: 10/16/17 19:41> Time Seen by Provider: 10/15/17 05:43 Chief Complaint (Nursing): Abdominal Pain Additional Complaint(s): 37 YO F well known to the ER for bed seeking behavior presents to the ER for suprapubic pain since yesterday. Patient was difficult to arrouse, sleeping and snoring loudly. Patient states it has been happening all day. However denies any burning with urination, vaginal discharge, nausea, vomiting, or diarrhea. (Nohemi Naik) Supervising Attending Note - Supervising Attending Note The Documented history was done by the: Physician Supervisor Bonding, Attending Physician The documented physical exam was done by the: Physician Supervisor Bonding, Attending Physician The documented procedures were done by the: Physician Supervisor Bonding, Attending Physician - Attestation: I have personally seen and examined this patient.: Yes I have fully participated in the care of the patient.: Yes I have reviewed all pertinent clinical information: Yes <Annmarie Smith - Last Filed: 10/16/17 19:41> Past Medical History - Medical History PMH: Anxiety, Asthma, Back Problems, Bipolar Disorder, Depression, HTN, Schizophrenia, Sleep Apnea Denies: Diabetes, Hepatitis, HIV, Chronic Kidney Disease, Seizures, Sexually Transmitted Disease - Surgical History Surgical History: Cholecystectomy, Hernia Repair (Umbilical), (x4) - Family History Family History: States: Unknown Family Hx - Immunization History Hx Tetanus Toxoid Vaccination: No Hx Influenza Vaccination: No Hx Pneumococcal Vaccination: No <Nohemi Naik - Last Filed: 10/15/17 06:40> Reviewed: Historical Data, Nursing Documentation, Vital Signs <Annmarie Smith - Last Filed: 10/16/17 19:41> Vital Signs: Last Vital Signs Temp 98.2 F 10/15/17 06:54 Pulse 86 10/15/17 06:54 Resp 18 10/15/17 06:54 BP 139/79 10/15/17 06:54 Pulse Ox 98 10/15/17 06:54 - Home Medications Home Medications: Ambulatory Orders Medication Instructions Recorded Naproxen [Naprosyn] 500 mg PO BID PRN #16 tab 09/23/17 - Allergies Allergies/Adverse Reactions: Allergies Allergy/AdvReac Type Severity Reaction Status Date / Time nut - unspecified [nut] Allergy ANAPHYLAXIS Verified 10/15/17 05:41 shellfish derived Allergy ANAPHYLAXIS Verified 10/15/17 05:41 tomato Allergy ANAPHYLAXIS Verified 10/15/17 05:41 lactose intolerent Allergy Severe RASH Uncoded 09/23/17 01:08 mushroom Allergy Mild RASH Uncoded 09/23/17 01:08 Review of Systems ROS Statement: Except As Marked, All Systems Reviewed And Found Negative <Gamal Smithm A - Last Filed: 10/16/17 19:41> Physical Exam - Physical Exam Appears: Positive for: No Acute Distress Head Exam: Positive for: ATRAUMATIC, NORMAL INSPECTION, NORMOCEPHALIC Cardiovascular/Chest: Positive for: Regular Rate, Rhythm. Negative for: Tachycardia Respiratory: Positive for: Normal Breath Sounds. 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 <Nohemi Naik - Last Filed: 10/15/17 06:40> - Reviewed Nursing Documentation Reviewed: Yes Vital Signs Reviewed: Yes - Physical Exam Appears: Positive for: Non-toxic Skin: Positive for: Warm, Dry Eye Exam: Positive for: EOMI <Gamal Smithm A - Last Filed: 10/16/17 19:41> - ECG O2 Sat by Pulse Oximetry: 100 <Nohemi Naik - Last Filed: 10/15/17 06:40> <Gamal Smithm A - Last Filed: 10/16/17 19:41> - Progress ED Course And Treament: U/A: WNL Urine drug screen: Urine preg: Reassessment: Patient seen comfortably sleeping on revaluation Repeat Blood pressure: 139/79 (Nohemi Naik) Medical Decision Making <Nohemi Naik - Last Filed: 10/15/17 06:40> <Annmarie Smith A - Last Filed: 10/16/17 19:41> Medical Decision Making: U/A: WNL Urine drug screen: Urine preg: Reassessment: Patient seen comfortably sleeping on revaluation Repeat Blood pressure: 139/79 (Nohemi Naik) Disposition - Patient ED Disposition Is Patient to be Admitted: No - Disposition Disposition: Routine/Home Disposition Time: 06:29 <Nohemi Naik - Last Filed: 10/15/17 06:40> Counseled Patient/Family Regarding: Studies Performed, Diagnosis <Annmarie Smith - Last Filed: 10/16/17 19:41> - Clinical Impression Clinical Impression: Suprapubic tenderness, Malingering, Elevated blood pressure reading - Disposition Referrals: [facility] [Outside] Condition: GOOD Additional Instructions: Please follow up with your PMD in 1-2 days. - If symptoms worsen or reoccur please return to the eR Instructions: Hypertension (ED) Print Language: WOLOF
[2017-10-15 06:32] VITALS: BP 139/79; PULSE 86; RESP 18; TEMP 98.2
[2017-10-15 06:38] LABS: SQUAMOUS EPITHIAL 4 /hpf (0-5); URINE BACTERIA RARE (<OCC); URINE BILIRUBIN NEGATIVE (NEGATIVE); URINE BLOOD NEGATIVE (NEGATIVE); URINE CLARITY SLIGHTY-CLOUDY (Clear); URINE COLOR YELLOW (YELLOW); URINE GLUCOSE (UA) NEG (Normal); URINE LEUKOCYTE ESTERASE NEG Leu/uL (Negative); URINE PROTEIN NEGATIVE (NEGATIVE)
[2017-10-15 06:56] VITALS: O2SAT 98
[2017-10-15 07:05] LABS: BARBITURATES, UR NEGATIVE (NEGATIVE); BENZODIAZEPINES, UR NEGATIVE (NEGATIVE); OPIATES, UR NEGATIVE (NEGATIVE); PHENCYCLIDINE, UR NEGATIVE (NEGATIVE)
== END 2017-10-15 07:14 | disposition home or self-care (01) ==
LOC: H.ER 05:25
DX: Z76.5 Malingerer [conscious simulation] (principal); I10 Essential (primary) hypertension; F20.9 Schizophrenia, unspecified; F31.9 Bipolar disorder, unspecified; F41.9 Anxiety disorder, unspecified

== ENCOUNTER 2018-01-27 03:41 | Emergency (ER) | payer MEDICAID, OTHER ==
[2018-01-27 03:42] VITALS: BMI 40.6
[2018-01-27 03:50] VITALS: O2SAT 99
--- NOTE | 2018-01-27 05:55 | ED PDOC ---
HPI: General Adult Time Seen by Provider: 01/27/18 03:51 Chief Complaint (Nursing): Back Pain History Per: Patient History/Exam Limitations: no limitations Additional Complaint(s): Patient presenting to the ER stating "I need a place to sleep". Offers no complaints at this time. Past Medical History Reviewed: Historical Data, Nursing Documentation, Vital Signs Vital Signs: Last Vital Signs Temp 98.8 F 01/27/18 03:50 Pulse 74 01/27/18 03:50 Resp 18 01/27/18 03:50 BP 161/84 H 01/27/18 03:50 Pulse Ox 99 01/27/18 03:50 - Medical History PMH: Anxiety, Asthma, Back Problems, Bipolar Disorder ((as per previous triage)), Depression, HTN, Schizophrenia ((as per previous triage)), Sleep Apnea Denies: Diabetes, Hepatitis, HIV, Chronic Kidney Disease, Seizures, Sexually Transmitted Disease - Surgical History Surgical History: Cholecystectomy, Hernia Repair (Umbilical), (x4) - Family History Family History: States: Unknown Family Hx - Immunization History Hx Tetanus Toxoid Vaccination: No Hx Influenza Vaccination: No Hx Pneumococcal Vaccination: No - Home Medications Home Medications: Ambulatory Orders Medication Instructions Recorded Albuterol HFA [Ventolin HFA 90 0.09 mg IH PRN PRN 12/31/17 mcg/actuation (8 g)] - Allergies Allergies/Adverse Reactions: Allergies Allergy/AdvReac Type Severity Reaction Status Date / Time nut - unspecified [nut] Allergy ANAPHYLAXIS Verified 01/24/18 04:46 shellfish derived Allergy ANAPHYLAXIS Verified 01/24/18 04:46 tomato Allergy ANAPHYLAXIS Verified 01/24/18 04:46 lactose intolerent Allergy Severe RASH Uncoded 01/24/18 04:46 mushroom Allergy Mild RASH Uncoded 01/24/18 04:46 Review of Systems ROS Statement: Except As Marked, All Systems Reviewed And Found Negative Physical Exam - Reviewed Nursing Documentation Reviewed: Yes Vital Signs Reviewed: Yes - Physical Exam Appears: Positive for: Well, Non-toxic, No Acute Distress Head Exam: Positive for: ATRAUMATIC, NORMAL INSPECTION, NORMOCEPHALIC Skin: Positive for: Normal Color, Warm, DRY Eye Exam: Positive for: EOMI, Normal appearance, PERRL ENT: Positive for: Normal ENT Inspection Neck: Positive for: Normal, Painless ROM Cardiovascular/Chest: Positive for: Regular Rate, Rhythm Respiratory: Positive for: CNT, Normal Breath Sounds Gastrointestinal/Abdominal: Positive for: Normal Exam, Soft Back: Positive for: Normal Inspection Extremity: Positive for: Normal ROM Neurologic/Psych: 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 No acute emergency medical issue, stable for discharge. Disposition - Clinical Impression Clinical Impression: Normal exam - Disposition Referrals: [facility] [Outside] Disposition: Routine/Home Disposition Time: 05:55 Condition: STABLE Instructions: General (DC) Forms: [employer] (Honduran)
[2018-01-27 06:17] VITALS: BP 144/76; PULSE 70; RESP 16; TEMP 98.6
== END 2018-01-27 05:58 | disposition home or self-care (01) ==
LOC: H.ER 03:41
DX: Z00.00 Encounter for general adult medical examination without abnormal findings (principal); Z86.59 Personal history of other mental and behavioral disorders; I10 Essential (primary) hypertension; J45.909 Unspecified asthma, uncomplicated

== ENCOUNTER 2018-02-03 03:46 | Emergency (ER) | payer MEDICAID ==
[2018-02-03 03:46] VITALS: BMI 40.6
--- NOTE | 2018-02-03 04:37 | ED PDOC ---
HPI: Psych/Substance Abuse Time Seen by Provider: 02/03/18 03:54 Chief Complaint (Nursing): Substance Abuse Chief Complaint (Provider): Substance Abuse History Per: Patient History/Exam Limitations: no limitations Onset/Duration Of Symptoms: Hrs Current Symptoms Are (Timing): Still Present Modifying Factor(s): Marijuana Additional Complaint(s): 37 y/o female presents to the ED for possible substance abuse, onset prior to arrival. Patient states she smoked marijuana and began feeling dizzy after. Denies head injury, chest pain, numbness, tingling and shortness of breath. PMD: none Past Medical History Reviewed: Historical Data, Nursing Documentation, Vital Signs Vital Signs: Last Vital Signs Temp 98.2 F 02/03/18 03:54 Pulse 73 02/03/18 03:54 Resp 16 02/03/18 03:54 BP 154/94 H 02/03/18 03:54 Pulse Ox 98 02/03/18 03:54 - Medical History PMH: Anxiety, Asthma, Back Problems, Bipolar Disorder ((as per previous triage)), Depression, HTN, Schizophrenia ((as per previous triage)), Sleep Apnea Denies: Diabetes, Hepatitis, HIV, Chronic Kidney Disease, Seizures, Sexually Transmitted Disease - Surgical History Surgical History: Cholecystectomy, Hernia Repair (Umbilical), (x4) - Family History Family History: States: Unknown Family Hx - Social History Drugs: Other (Marijuana) - Immunization History Hx Tetanus Toxoid Vaccination: No Hx Influenza Vaccination: No Hx Pneumococcal Vaccination: No - Home Medications Home Medications: Ambulatory Orders Medication Instructions Recorded Albuterol HFA [Ventolin HFA 90 0.09 mg IH PRN PRN 12/31/17 mcg/actuation (8 g)] - Allergies Allergies/Adverse Reactions: Allergies Allergy/AdvReac Type Severity Reaction Status Date / Time nut - unspecified [nut] Allergy ANAPHYLAXIS Verified 02/03/18 03:56 shellfish derived Allergy ANAPHYLAXIS Verified 02/03/18 03:56 tomato Allergy ANAPHYLAXIS Verified 02/03/18 03:56 lactose intolerent Allergy Severe RASH Uncoded 02/03/18 03:56 mushroom Allergy Mild RASH Uncoded 02/03/18 03:56 Review of Systems ROS Statement: Except As Marked, All Systems Reviewed And Found Negative Psych: Positive for: Other (Substance Abuse) Physical Exam - Reviewed Nursing Documentation Reviewed: Yes Vital Signs Reviewed: Yes - Physical Exam Appears: Positive for: No Acute Distress Head Exam: Positive for: ATRAUMATIC, NORMOCEPHALIC Skin: Positive for: Normal Color, Warm, Dry Eye Exam: Positive for: Normal appearance, EOMI, PERRL. Negative for: Nystagmus ENT: Positive for: Normal ENT Inspection Neck: Positive for: Normal, Painless ROM Cardiovascular/Chest: Positive for: Regular Rate, Rhythm. Negative for: Murmur, Tachycardia Respiratory: Positive for: Normal Breath Sounds. Negative for: Respiratory Dist ress Gastrointestinal/Abdominal: Positive for: Normal Exam, Soft. Negative for: Tenderness Back: Positive for: Normal Inspection. Negative for: L CVA Tenderness, R CVA Tenderness, Vertebral Tenderness Extremity: Positive for: Normal ROM. Negative for: Pedal Edema, Deformity Neurologic/Psych: Positive for: Alert, Oriented, Gait (steady and unassisted), Other (Sleeping but easily arousable to verbal stimuli). Negative for: Motor/Sensory Deficits - ECG O2 Sat by Pulse Oximetry: 98 (RA) Pulse Ox Interpretation: Normal Medical Decision Making Medical Decision Making: Scribe Attestation: Documented by Michael Tillman, acting as a scribe for Darrius Huerta PA-C. Provider Scribe Attestation: All medical record entries made by the Scribe were at my direction and personally dictated by me. I have reviewed the chart and agree that the record accurately reflects my personal performance of the history, physical exam, medical decision making, and the department course for this patient. I have also personally directed, reviewed, and agree with the discharge instructions and disposition. Disposition - Clinical Impression Clinical Impression: Marijuana abuse - Patient ED Disposition Is Patient to be Admitted: No - Disposition Referrals: [facility] [Outside] Disposition: Routine/Home Disposition Time: 05:18 Condition: STABLE Additional Instructions: RODRIGO VILLALOBOS, thank you for letting us take care of you today. Your provider was Vic Lambert MD and you were treated for POSS SUBSTANCE ABUSE. The emergency medical care you received today was directed at your acute symptoms. If you were prescribed any medication, please fill it and take as directed. It may take several days for your symptoms to resolve. Return to the Emergency Department if your symptoms worsen, do not improve, or if you have any other problems. Please contact your doctor or call one of the physicians/clinics you have been referred to that are listed on the Patient Visit Information form that is included in your discharge packet. Bring any paperwork you were given at discharge with you along with any medications you are taking to your follow up visit. Our treatment cannot replace ongoing medical care by a primary care provider outside of the emergency department. Thank you for allowing the [facility] team to be part of your care today. If you had an X-Ray or CT scan: A Radiologist will review the ED reading if any change in treatment is needed we will contact you. If you had a blood, urine, or wound culture: It will take several days for the results, if any change in treatment is needed we will contact you. If you had an STI test: It will take 48 hours for the results. Please call after 1 week if you have not heard back. Instructions: Marijuana Use and Addiction (DC), Drug Abuse Treatment Forms: [employer] ([place]ankan)
[2018-02-03 06:09] VITALS: BP 146/79; PULSE 86; RESP 18; TEMP 97.9; O2SAT 97
== END 2018-02-03 06:08 | disposition home or self-care (01) ==
LOC: H.ER 03:46
DX: F12.10 Cannabis abuse, uncomplicated (principal); Z86.59 Personal history of other mental and behavioral disorders; I10 Essential (primary) hypertension; J45.909 Unspecified asthma, uncomplicated

== ENCOUNTER 2018-02-10 03:12 | Emergency (ER) | payer MEDICAID ==
[2018-02-10 03:12] VITALS: BMI 40.6
[2018-02-10 03:39] VITALS: O2SAT 96
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
[2018-02-10 06:11] VITALS: BP 154/83; PULSE 78; RESP 19; TEMP 98.6
== END 2018-02-10 06:24 | disposition home or self-care (01) ==
LOC: H.ER 03:12
DX: M54.9 Dorsalgia, unspecified (principal); Z76.5 Malingerer [conscious simulation]

== ENCOUNTER 2018-06-09 04:29 | Emergency (ER) | payer MEDICAID ==
[2018-06-09 04:35] VITALS: BMI 41.5
[2018-06-09 04:39] VITALS: BP 145/99; PULSE 83; RESP 16; TEMP 99.1; O2SAT 100
--- NOTE | 2018-06-09 05:42 | ED PDOC ---
HPI: General Adult Time Seen by Provider: 06/09/18 04:52 Chief Complaint (Nursing): Pain, Chronic Chief Complaint (Provider): Pain, Chronic History Per: Patient History/Exam Limitations: no limitations Onset/Duration Of Symptoms: Days Current Symptoms Are (Timing): Still Present Additional Complaint(s): 37 y/o undomiciled female presents to the ED complaining of body aches for the past 6 years and a tooth ache to the right upper jaw since yesterday. Patient offers no other complaints. Patient sleeping in room upon interview. PMD: NO PROVIDER Past Medical History Reviewed: Historical Data, Nursing Documentation, Vital Signs Vital Signs: Last Vital Signs Temp 99.1 F 06/09/18 04:35 Pulse 83 06/09/18 04:35 Resp 16 06/09/18 04:35 BP 145/99 H 06/09/18 04:35 Pulse Ox 100 06/09/18 04:35 - Medical History PMH: Anemia (chronic), Anxiety, Asthma, Back Problems, Bipolar Disorder ((as per previous triage)), Depression, HTN, Schizophrenia ((as per previous triage)), Sleep Apnea Denies: Diabetes, Hepatitis, HIV, Chronic Kidney Disease, Seizures, Sexually Transmitted Disease - Surgical History Surgical History: Cholecystectomy, Hernia Repair (Umbilical), (x4) - Family History Family History: States: Unknown Family Hx - Living Arrangements Living Arrangements: Other (HOMELESS) - Immunization History Hx Tetanus Toxoid Vaccination: No Hx Influenza Vaccination: No Hx Pneumococcal Vaccination: No - Home Medications Home Medications: Ambulatory Orders Medication Instructions Recorded Albuterol HFA [Ventolin HFA 90 0.09 mg IH PRN PRN 12/31/17 mcg/actuation (8 g)] Amoxicillin 875 mg PO BID #14 tablet 06/09/18 - Allergies Allergies/Adverse Reactions: Allergies Allergy/AdvReac Type Severity Reaction Status Date / Time nut - unspecified [nut] Allergy ANAPHYLAXIS Verified 06/09/18 04:35 shellfish derived Allergy ANAPHYLAXIS Verified 06/09/18 04:35 tomato Allergy ANAPHYLAXIS Verified 06/09/18 04:35 lactose intolerent Allergy Severe RASH Uncoded 06/09/18 04:35 mushroom Allergy Mild RASH Uncoded 06/09/18 04:35 Review of Systems ROS Statement: Except As Marked, All Systems Reviewed And Found Negative Constitutional: Positive for: Other (BODY ACHES) ENT: Positive for: Mouth Pain (DENTAL PAIN) Physical Exam - Reviewed Nursing Documentation Reviewed: Yes Vital Signs Reviewed: Yes - Physical Exam Appears: Positive for: No Acute Distress (sleeping comfortably, obese) Head Exam: Positive for: ATRAUMATIC Skin: Positive for: Normal Color Eye Exam: Positive for: EOMI ENT: Positive for: Other (First molar on the upper right jaw is noted to have a cavity) Cardiovascular/Chest: Positive for: Regular Rate, Rhythm Neurological/Psych: Positive for: Awake, Alert, Oriented (x3) - ECG O2 Sat by Pulse Oximetry: 100 (RA) Pulse Ox Interpretation: Normal - Progress Re-evaluation Time: : Condition: Re-examined, Improved Medical Decision Making Medical Decision Making: Time: 505 Impression: Toothache and body ache Plan: -- Motrin 600 mg PO Scribe Attestation: Documented by Michael Tillman, acting as a scribe Marquita Smith MD. Provider Scribe Attestation: All medical record entries made by the Scribe were at my direction and personally dictated by me. I have reviewed the chart and agree that the record accurately reflects my personal performance of the history, physical exam, medical decision making, and the department course for this patient. I have also personally directed, reviewed, and agree with the discharge instructions and disposition. Disposition - Clinical Impression Clinical Impression: Toothache - Patient ED Disposition Is Patient to be Admitted: No Counseled Patient/Family Regarding: Studies Performed, Diagnosis - Disposition Referrals: [facility] [Outside] Disposition: Routine/Home Disposition Time: : Condition: GOOD Additional Instructions: RODRIGO VILLALOBOS, thank you for letting us take care of you today. Your provider was Annmarie Smith MD and you were treated for BODY ACHE. The emergency medical care you received today was directed at your acute symptoms. If you were prescribed any medication, please fill it and take as directed. It may take several days for your symptoms to resolve. Return to the Emergency Department if your symptoms worsen, do not improve, or if you have any other problems. Please contact your doctor or call one of the physicians/clinics you have been referred to that are listed on the Patient Visit Information form that is included in your discharge packet. Bring any paperwork you were given at discharge with you along with any medications you are taking to your follow up visit. Our treatment cannot replace ongoing medical care by a primary care provider outside of the emergency department. Thank you for allowing the [facility] team to be part of your care today. Prescriptions: Amoxicillin 875 mg PO BID #14 tablet Instructions: Dental Pain (DC)
== END 2018-06-09 07:28 | disposition home or self-care (01) ==
LOC: H.ER 04:29
DX: K08.89 Other specified disorders of teeth and supporting structures (principal)